=== PATIENT | female | born 1990 | race Caucasian/White ===

== ENCOUNTER 2017-01-06 18:59 | Outpatient (CLI) | payer BC, OTHER ==
[2017-01-06 19:31] VITALS: BP 129/67; PULSE 86; TEMP 97.9
[2017-01-06 20:26] VITALS: BP 129/67; PULSE 86; TEMP 97.9
[2017-01-06] MEDS ORDERED: PRENATAL PO (20:40)
== END 2017-01-06 22:25 | disposition home or self-care (01) ==
LOC: LDRO 18:59
DX: O26.893 Other specified pregnancy related conditions, third trimester (principal); R10.9 Unspecified abdominal pain; Z3A.33 33 weeks gestation of pregnancy
CPT/HCPCS: J7120